=== PATIENT | female | born 1980 | race Caucasian/White ===

== ENCOUNTER 2017-01-27 13:21 | Emergency (ER) | payer MEDICAID ==
[2017-01-27 13:45] LABS: BASOPHILS 0.1 % (0-2); EOSINOPHILS 3.5 % (0-7); HEMATOCRIT 44.6 % (36.0-48.0); HEMOGLOBIN 15.3 g/dL (12-16); IMMATURE GRANULOCYTES 0.3 % (0-5); LYMPHOCYTES 22.7 % (15-50); MCH 32.2 pg (26.0-34.0); MCHC 34.3 g/dL (31.0-37.0); MCV 93.9 fL (80.0-100.0); MEAN PLATELET VOLUME 8.3 fL (7.4-10.4); MONOCYTES 5.3 % (2-11); NEUTROPHILS 68.1 % (40-80); PLATELET COUNT 332 10x3/uL (130-400); RBC 4.75 10x6/uL (4.00-5.40); WBC 8.9 10x3/uL (4.8-10.8)
== END 2017-01-27 16:42 | disposition home or self-care (01) ==
LOC: D.ER 13:21
PROVIDERS: Emergency Medicine
DX: O20.9 Hemorrhage in early pregnancy, unspecified (principal); O03.9 Complete or unspecified spontaneous abortion without complication; F17.200 Nicotine dependence, unspecified, uncomplicated

== ENCOUNTER 2019-02-04 06:50 | Day surgery (SDC) | payer MEDICAID ==
[2019-02-02 14:22] LABS: BASOPHILS 0.2 % (0-2); EOSINOPHILS 4.6 % (0-7); HEMATOCRIT 38.9 % (36.0-48.0); HEMOGLOBIN 13.7 g/dL (12-16); IMMATURE GRANULOCYTES 0.5 % (0-5); LYMPHOCYTES 27.8 % (15-50); MCH 31.6 pg (26.0-34.0); MCHC 35.2 g/dL (31.0-37.0); MCV 89.8 fL (80.0-100.0); MEAN PLATELET VOLUME 8.2 fL (7.4-10.4); MONOCYTES 4.5 % (2-11); NEUTROPHILS 62.4 % (40-80); PLATELET COUNT 312 10x3/uL (130-400); RBC 4.33 10x6/uL (4.00-5.40); RDW 12.7 % (11.5-14.5); WBC 9.5 10x3/uL (4.8-10.8)
[~2019-02-04] VITALS: Ht 167.6 cm; Wt 108.0 kg
--- NOTE | ~2019-02-04 | OP ---
PATIENT NAME: LEIDY CUMMINS MEDICAL RECORD: [id number] :84 LOCATION:D[facility] ADMISSION DATE: SURGEON: TESSA ESCOBAR MD DATE OF OPERATION: 02/04/2019 PREOPERATIVE DIAGNOSES: 1. Amenorrhea. 2. The patient desires permanent sterility. POSTOPERATIVE DIAGNOSES: 1. Amenorrhea. 2. The patient desires permanent sterility. PROCEDURES: Laparoscopic tubal ligation via bipolar electrocautery, hysteroscopy, and dilation and curettage. SURGEON: Tessa Escobar MD ANESTHESIA: General endotracheal. INTRAVENOUS FLUIDS: Per anesthesia record. SPECIMENS: Endometrial curettings. COMPLICATIONS: None apparent. FINDINGS: 1. Grossly normal-appearing endometrial canal, vagina, and cervix. 2. Grossly normal-appearing fallopian tubes, ovaries, and uterus. PROCEDURE IN DETAIL: The patient was taken to the operating room, where general anesthesia was achieved without any difficulty. At this point, the patient was prepped and draped in normal sterile fashion in the dorsal lithotomy position in the [facility]. The bladder was drained of approximately 100 cc of clear yellow urine and a sponge stick was placed into the vagina for uterine elevation. Attention was then turned to the umbilicus, where a 5-mm incision was made on the skin infraumbilically and a 5-mm bladeless trocar was used to enter the intraperitoneal space under direct visualization of the laparoscope. At this point, intraperitoneal pressure opening was found to be less than 10 mmHg and the patient was insufflated. The introducer was removed and the laparoscope was then placed into the abdomen. Survey of abdomen and pelvis was performed. A second 5-mm incision was made in the skin approximately 4-5 cm in the midline superior to the pubic symphysis. A 5-mm bladeless trocar was then used to enter the intraperitoneal space under direct visualization of the laparoscope. Attention was then turned to the bilateral fallopian tubes, at which point bipolar cautery was used to completely desiccate approximately 5 cm section of the mid portion of the two. Good hemostasis was noted from both surgical sites. Following the tubal ligation, the patient was desufflated and the ports were removed. The skin was repaired with 3-0 Vicryl in an interrupted fashion. Attention was then turned to the vagina, where the sponge stick was removed. A Graves speculum was placed in the vagina and the cervix was grasped on its anterior lip with a single-tooth tenaculum. The patient was sounded to approximately 8.5 cm and the anterior lip of the cervix was then grasped with a single-tooth tenaculum. The patient was dilated to approximately 4-5 mm, at which point the hysteroscope was placed through the cervix and survey of the OPERATIVE REPORT [id number] LEIDY CUMMINS S endometrial canal was performed, revealing several small polyps. Curettage was performed in all 4 quadrants with minimal bleeding noted following the procedure. This was performed with a #1 curette. The tenaculum was removed. Counts were correct times 2 for needles, sponges, and instruments. The patient tolerated the procedure well. She was transferred to postanesthesia recovery stable without incident. TRANSINT:[id number] Voice Confirmation ID: [id number] DOCUMENT ID: [id number] TESSA ESCOBAR MD CC: [id number] DICTATION DATE: 02/27/191715 MANAGER TERMINAL: 02/27/191811 [facility] 02/04/19 [id number] [place] [address]
[~2019-02-04 06:50] MED LIST: ALBUTEROL SULF8.5 GM INH; AMBIEN10 MG PO; BUPROPION XL300 MG PO; IMITREX50 MG PO; KLONOPIN1 MG PO; NEURONTIN 300300 MG PO; TOPAMAX50 MG PO
[2019-02-04 07:58] LABS: HCG URINE NEGATIVE (NEGATIVE)
[2019-02-04 08:13] VITALS: BP 131/85; Ht 167.6 cm; Wt 108.0 kg
== END 2019-02-04 13:45 | disposition home or self-care (01) ==
LOC: D.OPS 06:50 → D.PAN 07:30 → D.OPS 07:30
PROVIDERS: ATTEND Obstetrics & Gynecology
DX: N91.2 Amenorrhea, unspecified (principal); Z30.2 Encounter for sterilization; E28.2 Polycystic ovarian syndrome